=== PATIENT | female | born 2000 | race Caucasian/White ===

== ENCOUNTER 2023-06-06 15:38 | Emergency (ER) | payer OTHER, SELFPAY ==
[2023-06-06 15:55] VITALS: BP 111/64; PULSE 81; RESP 20; TEMP 36.9; O2SAT 97
--- NOTE | 2023-06-06 16:24 | ED.URI ---
HPI - URI/Sore Throat General Chief Complaint: Upper Respiratory Infection Stated Complaint: nausea /throat/headache Time Seen by Provider: 06/06/23 16:00 Source: patient Mode of arrival: ambulatory Limitations: no limitations History of Present Illness HPI Narrative: Acosta is a 22-year-old patient presenting to clinic today with complaints of fever, nausea, cough, sore throat, and headache x2 days. They report they have had a fever of 101 highest. No known sick contacts. MD elicited complaint: fever, cough, sore throat and nasal congestion Related Data Home Medications Medication Instructions Recorded Confirmed buprenorphine 4 mg-naloxone 1 mg 1 film sublingual DAILY 06/06/23 06/06/23 sublingual film buprenorphine 8 mg-naloxone 2 mg 1 film sublingual DAILY 06/06/23 06/06/23 sublingual film clonazepam 1 mg tablet 1 mg PO TID 06/06/23 06/06/23 lamotrigine 25 mg tablet 25 mg PO DAILY 06/06/23 06/06/23 venlafaxine 37.5 mg 37.5 mg PO DAILY 06/06/23 06/06/23 capsule,extended release 24 hr Allergies Allergy/AdvReac Type Severity Reaction Status Date / Time No Known Allergies Allergy Unverified 02/19/16 11:33 Review of Systems Review of Systems: Pertinent positives per HPI. Patient denies any rash, visual changes, dizziness, shortness of breath, chest pain, palpitations, vomiting, diarrhea, constipation, abdominal pain, or any urinary issues. PMFSH Comments At the time of my signature, I reviewed and agree with the nursing past medical, surgical, social, and family history. There is no relevant family history pertinent to the patient complaint. Exam Narrative: General: Well-developed, well nourished, in no apparent distress Head: Normocephalic, atraumatic Eyes: Pupils equally round and reactive to light bilaterally, EOM intact, sclera and conjunctive clear, no discharge, lids normal Ears: TMs intact and congested, ear canals clear, no drainage, grossly hearing normal. Nose: Nares patent, clear discharge, moderate inflammation, no sinus tenderness. Mouth: Oral pharynx red without lesions or masses, good dentition, MMM. Postnasal drip Neck: Supple, trachea midline, no enlargement of anterior or posterior cervical nodes, no thyroid masses or goiter palpable. Cardio: Regular rate and rhythm, s1 and s2 normal, no murmur appreciated. Resp: Clear to auscultation bilaterally, no rhonchi, rales, wheezing or rubs Course Course Emergency Course: Portions of this record may have been created with voice recognition software. Level of Care: Express Care Visit Vital Signs Vital signs: Vital Signs Temperature 36.9 C 06/06/23 15:55 Pulse Rate 81 06/06/23 15:55 Respiratory Rate 20 06/06/23 15:55 Blood Pressure 111/64 06/06/23 15:55 Pulse Oximetry 97 06/06/23 15:55 Oxygen Delivery Room Air 06/06/23 15:55 Temperature 36.9 C 06/06/23 15:55 Pulse Rate 81 06/06/23 15:55 Respiratory Rate 20 06/06/23 15:55 Blood Pressure 111/64 06/06/23 15:55 Pulse Oximetry 97 06/06/23 15:55 Oxygen Delivery Room Air 06/06/23 15:55 Vital signs reviewed MDM - URI/Sore Throat MDM Narrative Medical decision making narrative: At the time of visit patient is resting on the exam table. COVID, influenza, and strep test were all performed. All testing was negative. We will send strep for culture. Will send in prescription for some Zofran and steroid for the patient. Supportive measures were discussed with the patient and they voiced understanding of discharge instructions and agrees to treatment plan. Differential Diagnosis Differential diagnosis: Likely upper respiratory infection, otitis media, sinusitis, viral infection, bronchitis, influenza, pharyngitis and other (COVID) Lab Data Labs: Lab Results 06/06/23 Range/Units Unknown POC SARS CoV-2 Ag Negative (Negative) Influenza A Screen Negative Referenc
== END 2023-06-06 16:34 | disposition home or self-care (01) ==
PROVIDERS: Emergency Provider Nurse Practitioner Family; PCP Family Medicine
DX: J06.9 Acute upper respiratory infection, unspecified (principal); J02.9 Acute pharyngitis, unspecified; B34.9 Viral infection, unspecified; Z20.822 Contact with and (suspected) exposure to COVID-19
CPT/HCPCS: 87081; 87426; 87804; 87880; 99213; C9803; G0463

== ENCOUNTER 2023-08-16 14:20 | Emergency (ER) | payer OTHER, SELFPAY ==
[2023-08-16 14:30] VITALS: BP 119/64; PULSE 110; RESP 18; TEMP 37.4; O2SAT 97
--- NOTE | 2023-08-16 15:24 | ED.URI ---
HPI - URI/Sore Throat General Chief Complaint: Upper Respiratory Infection Stated Complaint: throat/tired/cough Time Seen by Provider: 08/16/23 15:28 Source: patient, RN notes reviewed and old records reviewed Mode of arrival: ambulatory Limitations: no limitations History of Present Illness HPI Narrative: 23-year-old female presents to the [facility] with complaints of a sore throat, fatigue and cough for approximately 1 week. Has taken Robitussin Denies fevers. States that hurts when he swallows. Denies chest pain or abdominal pain. No nausea vomiting or diarrhea. Onset (ago): week(s) (1) Related Data Home Medications Medication Instructions Recorded Confirmed buprenorphine 4 mg-naloxone 1 mg 1 film sublingual DAILY 06/06/23 08/16/23 sublingual film buprenorphine 8 mg-naloxone 2 mg 1 film sublingual DAILY 06/06/23 08/16/23 sublingual film clonazepam 1 mg tablet 1 mg PO TID 06/06/23 08/16/23 lamotrigine 25 mg tablet 25 mg PO DAILY 06/06/23 08/16/23 venlafaxine 37.5 mg 37.5 mg PO DAILY 06/06/23 08/16/23 capsule,extended release 24 hr Allergies Allergy/AdvReac Type Severity Reaction Status Date / Time No Known Allergies Allergy Verified 08/16/23 14:29 Review of Systems Review of Systems: All systems reviewed & are unremarkable except as noted in HPI and below Constitutional: Constitutional: Reports no additional constitutional complaints Eyes: Eyes: Reports no additional eye complaints ENT: Reports as per HPI and Reports sore throat Cardiovascular: Cardiovascular: Reports no additional cardiovascular complaints, Denies chest pain and Denies dyspnea Respiratory: Respiratory: Reports no additional respiratory complaints, Denies chest congestion, Denies cough and Denies dyspnea Gastrointestinal: Gastrointestinal: Reports no additional gastrointestinal complaints, Denies abdominal pain, Denies nausea and Denies vomiting Musculoskeletal: Musculoskeletal: Reports no additional musculoskeletal complaints Integumentary/Breasts: Skin/Breast: Reports system reviewed and no additional complaints, except as docu Neurologic: Reports system reviewed and no additional complaints, except as documented Psychiatric: Psychiatric: Reports no additional psychiatric complaints Allergic/Immunologic: Allergic/Immunologic: Reports no additional allergic/immunologic complaints PMFSH Comments At the time of my signature, I reviewed and agree with the nursing past medical, surgical, social, and family history. There is no relevant family history pertinent to the patient complaint. Exam Const: General: cooperative, healthy appearing, comfortable, no acute distress, well developed, alert and well nourished Nutritional Appearance: well nourished Orientation/consciousness: patient oriented x3 Limitations: no limitations HENMT: Head: normal to inspection Ears: hearing grossly normal bilaterally and external ears normal Face/Nose/Sinus: Normal external nose present, Normal nares present, Normal nasal mucous membranes and turbinates present, normal facial exam and face symmetric Face and sinus: normal facial exam and face symmetric Mouth: Yes Normal oral and palatal mucosa present, Yes lip normal and Yes moist mucous membranes Throat: posterior oropharynx normal, uvula midline and abnormal tonsil bilateral erythema, exudates and hypertrophy 2+ Eyes: General: appearance normal, both eyes and all related structures Alignment and Position: alignment normal Periorbital: periorbital findings normal Pupils: Equal, round and reactive pupils present EOM: EOMs intact bilaterally Neck: Neck: normal visual inspection, full ROM, no lymphadenopathy and no meningeal signs Chest: Chest palpation & inspection: normal inspection of the chest Resp: Effort & Inspection: normal respiratory effort and able to speak in complete sentences Auscultation: clear to auscultation bilaterally, no crackles, no rales, no rhonchi and no wheezes Cardio:
== END 2023-08-16 15:33 | disposition home or self-care (01) ==
PROVIDERS: Emergency Provider Nurse Practitioner; PCP Hospitalist
DX: J02.0 Streptococcal pharyngitis (principal)
CPT/HCPCS: 87880; 99213; G0463

== ENCOUNTER 2024-07-15 12:13 | Emergency (ER) | payer OTHER, SELFPAY ==
[2024-07-15 12:32] VITALS: BP 108/66; PULSE 81; RESP 18; TEMP 36.8; O2SAT 99
--- NOTE | 2024-07-15 12:56 | PC.NURSE ---
Called to room at [phone] and no answer in the lobby
== END 2024-07-15 13:17 | disposition left against medical advice (07) ==
LOC: EXPBETH 12:16
PROVIDERS: Emergency Provider Nurse Practitioner; PCP Hospitalist
DX: J02.9 Acute pharyngitis, unspecified (principal)
CPT/HCPCS: 99199